=== PATIENT | male | born 1980 | race Caucasian/White ===

== ENCOUNTER 2024-07-15 17:57 | Inpatient (IN) | payer BC ==
[2024-07-15 19:02] VITALS: BMI 25.7
[2024-07-15] MEDS ORDERED: guaiFENesin 600 MG TABLET.ER (FP) PO PRN (21:26)
[2024-07-15] MEDS ORDERED: NICOTINE POLACRILEX 2 MG GUM BUC PRN (21:26)
[2024-07-15] MEDS ORDERED: LOPERAMIDE HCL 2 MG CAPSULE PO PRN (21:26)
[2024-07-15] MEDS ORDERED: P-EPHED 60MG/TRIPROLIDI 2.5MG TABLET PO PRN (21:26)
[2024-07-15] MEDS ORDERED: MAGNESIUM HYDROX 2400MG/30ML ORAL SUSPENSION 30 ML CUP PO PRN (21:26)
[2024-07-15] MEDS ORDERED: NICOTINE POLACRILEX 2 MG LOZENGE BC PRN (21:26)
[2024-07-15] MEDS ORDERED: DICYCLOMINE HCL 10 MG CAPSULE PO PRN (21:26)
[2024-07-15] MEDS ORDERED: BENZONATATE 200 MG CAPSULE PO PRN (21:26)
[2024-07-15] MEDS ORDERED: ONDANSETRON *ODT* 4 MG TABLET SL PRN (21:26)
[2024-07-15] MEDS ORDERED: BENZOCAINE/MENTHOL (CHLORASEPTIC ) LOZENGE MM PRN (21:26)
[2024-07-15] MEDS ORDERED: NALOXONE HCL 0.4 MG/ML VIAL IM PRN (21:26)
[2024-07-15] MEDS ORDERED: BISMUTH SUBSALICYLATE 524 MG/30 ML PO PRN (21:26)
[2024-07-15] MEDS ORDERED: NALOXONE (NARCAN) HCL 4 MG/0.1 ML SPRAY NS PRN (21:26)
[2024-07-15] MEDS ORDERED: POLYETHYLENE GLYCOL (HEALTHYLAX) 3350 17 GM PACKET PO PRN (21:26)
[2024-07-15] MEDS ORDERED: MAG HYDROX/AL HYDROX/SIMETH 30 ML UNIT-DOSE CUP PO PRN (21:26)
[2024-07-15] MEDS ORDERED: chlordiazePOXIDE HCL 25 MG CAPSULE PO PRN (21:27)
[2024-07-15] MEDS: MELATONIN 5 MG TABLETS PO SCH (22:48)
[2024-07-15] MEDS: THIAMINE 100 MG TABLET PO SCH (22:50)
[2024-07-15] MEDS: chlordiazePOXIDE HCL 25 MG CAPSULE PO SCH (22:56)
[2024-07-15] MEDS: BUPRENORPHINE/NALOXONE 4 MG/1 MG FILM PACKET SL SCH (22:56)
[2024-07-16 09:25] LABS: HEMOGLOBIN 12.4 GM/dL (11.7-16.9); MCH 29.5 pg (25.7-33.7); MCHC 33.5 g/dl (32.0-35.9); MEAN CELL VOLUME 88.2 fl (80-96); MEAN PLT VOLUME 10.3 fl (7.5-11.1); PLATELET COUNT 283 10^3/uL (134-434); RBC 4.19 M/mm3 (4.00-5.60); WHITE BLOOD COUNT 6.9 K/mm3 (4.0-10.0)
[2024-07-16 09:27] LABS: CHLORIDE 107 mmol/L (98-107); POTASSIUM 4.6 mmol/L (3.5-5.1); SODIUM 140 mmol/L (136-145)
[2024-07-16 09:38] LABS: CALCIUM 8.9 mg/dL (8.5-10.1)
[2024-07-16 09:39] LABS: ALBUMIN 3.2 g/dl (3.4-5.0); ANION GAP 6 mmol/L (4-13); BLOOD UREA NITROGEN 10.9 mg/dL (7-18); CO2 27 mmol/L (21-32); GLUCOSE,RANDOM 106 mg/dL (74-106)
[2024-07-16 09:42] LABS: CREATININE 0.5 mg/dL (0.55-1.3); SGOT/AST 32 U/L (15-37); SGPT/ALT 32 U/L (13-61)
[2024-07-16 09:43] LABS: BILIRUBIN,TOTAL 0.5 mg/dL (0.2-1); TOT PROT 6.5 g/dl (6.4-8.2)
[2024-07-16 09:45] LABS: ALK PHOS 153 U/L (45-117)
[2024-07-16] MEDS: PRENATAL VITAMINS W/ FOLIC ACID TABLET (FP) PO SCH (10:05)
[2024-07-16] MEDS: PANTOPRAZOLE 40 MG TABLET PO SCH (10:05)
[2024-07-16] MEDS: BUPRENORPHINE/NALOXONE 8 MG/2 MG FILM PACKET SL ONE (10:06)
[2024-07-16] MEDS: QUEtiapine FUMARATE 100 MG TABLET (FP) PO SCH (22:16)
[2024-07-16] MEDS: IBUPROFEN 600 MG TABLET (FP) PO PRN (23:10)
[2024-07-17] MEDS: chlordiazePOXIDE HCL 25 MG CAPSULE PO SCH (05:40)
[2024-07-17] MEDS: BUPRENORPHINE/NALOXONE 8 MG/2 MG FILM PACKET SL SCH (05:40)
[2024-07-17] MEDS: METHOCARBAMOL 500 MG TABLET PO PRN (09:35)
[2024-07-17] MEDS: ACETAMINOPHEN 325 MG TABLET (FP) PO PRN (17:40)
[2024-07-17] MEDS: IBUPROFEN 400 MG TABLET (FP) PO PRN (19:32)
[2024-07-18] MEDS ORDERED: chlordiazePOXIDE HCL 10 MG CAPSULE PO PRN
[2024-07-18] MEDS: chlordiazePOXIDE HCL 10 MG CAPSULE PO SCH (06:06)
[2024-07-19] MEDS: chlordiazePOXIDE HCL 10 MG CAPSULE PO SCH (05:37)
[2024-07-20] MEDS: chlordiazePOXIDE HCL 10 MG CAPSULE PO ONE (05:23)
[2024-07-20 09:05] VITALS: BP 114/70; PULSE 76; RESP 18; TEMP 98.1
== END 2024-07-20 11:25 | disposition home or self-care (01) | DRG 773 ==
LOC: YASAS 17:57 → Y6N 22:16
PROVIDERS: ADMIT Allergy & Immunology; ATTEND Surgery
PROC: HZ2ZZZZ Detoxification Services for Substance Abuse Treatment (ICD-10-PCS; principal; 2024-07-15)
DX: F11.23 Opioid dependence with withdrawal (principal); F10.230 Alcohol dependence with withdrawal, uncomplicated; F14.20 Cocaine dependence, uncomplicated; F17.210 Nicotine dependence, cigarettes, uncomplicated; F41.9 Anxiety disorder, unspecified; J45.909 Unspecified asthma, uncomplicated; G47.00 Insomnia, unspecified; K21.9 Gastro-esophageal reflux disease without esophagitis; M17.0 Bilateral primary osteoarthritis of knee; R01.1 Cardiac murmur, unspecified; Z88.8 Allergy status to other drugs, medicaments and biological substances; Z91.013 Allergy to seafood; Z86.69 Personal history of other diseases of the nervous system and sense organs; Z56.0 Unemployment, unspecified
CPT/HCPCS: 36415; 80053; 80305; 80307; 85027; 86780; 93005; 93010